=== PATIENT | male | born 1975 | race Caucasian/White ===

== ENCOUNTER → 2020-07-30 10:50 | Outpatient (BNVA) | payer BC, SELFPAY | PROVIDERS: Family Provider Family Medicine; PCP Family Medicine; Visit Provider Nurse Practitioner Family | DX: Z11.59 Encounter for screening for other viral diseases (principal); J06.9 Acute upper respiratory infection, unspecified; Z20.828 Contact with and (suspected) exposure to other viral communicable diseases | CPT/HCPCS: 87635 ==

== ENCOUNTER → 2020-09-26 12:30 | Outpatient (BNVA) | payer BC, SELFPAY | PROVIDERS: Family Provider Family Medicine; PCP Family Medicine; Visit Provider Nurse Practitioner Family | DX: Z20.828 Contact with and (suspected) exposure to other viral communicable diseases (principal) | CPT/HCPCS: 87635 ==

== ENCOUNTER → 2020-11-12 11:02 | Outpatient (BNVA) | payer OTHER, SELFPAY | PROVIDERS: Family Provider Family Medicine; PCP Family Medicine; Visit Provider Nurse Practitioner Family | DX: Z20.828 Contact with and (suspected) exposure to other viral communicable diseases (principal); J06.9 Acute upper respiratory infection, unspecified | CPT/HCPCS: 87635 ==

== ENCOUNTER 2024-10-10 09:56 | Outpatient (CLI) | payer BC, SELFPAY ==
--- NOTE | 2024-10-10 10:04 | MR_ITS ---
WS: [id number] MRI CERVICAL SPINE NONCONTRAST TECHNIQUE: Sagittal T1, T2 and STIR imaging. Axial T2, gradient, and fiesta imaging. CLINICAL INFORMATION: CERVICAL RADICULOPATHY COMPARISON: None. FINDINGS: Straightening of the normal cervical lordosis. Mild disc bulging worse at C5-6. Cord signal appears n ormal. No high-grade central canal narrowing. C2-C3: Normal. C3-C4: Mild disc osteophyte complex with endplate ridging. Mild RIGHT and no significant LEFT foramin al narrowing. Mild facet arthropathy. C4-C5: Disc osteophyte complex with endplate ridging. Moderate facet arthropathy. Moderate LEFT and m ild RIGHT bony foraminal narrowing. C5-C6: LEFT paracentral disc osteophyte protrusion. Slight indentation of the cervical cord. Spinal c anal is patent. Moderate to severe LEFT and mild RIGHT bony foraminal narrowing. Moderate facet arthr opathy. C6-C7: Disc osteophyte complex eccentric to the LEFT with severe LEFT foraminal narrowing. Moderate R IGHT bony foraminal narrowing. Mild facet arthropathy. C7-T1: Mild LEFT bony foraminal narrowing. Spinal canal and RIGHT foramen are patent. Visualized brain stem structures: Normal. Prevertebral soft tissues: Normal. IMPRESSION 1. Straightening of the normal cervical lordosis. Cord signal is normal. 2. LEFT paracentral disc osteophyte complex C5-6 with slight indentation cervical cord. Spinal canal is patent 3. Moderate to severe LEFT C5-6 and severe LEFT C6-7 bony foraminal narrowing 4. Moderate LEFT C4-5 bony foraminal narrowing.
== END 2024-10-10 09:57 | disposition home or self-care (01) ==
LOC: RAD 09:58
PROVIDERS: Family Provider Family Medicine; PCP Family Medicine; Visit Provider Emergency Medicine
DX: M54.13 Radiculopathy, cervicothoracic region (principal); M25.78 Osteophyte, vertebrae; M47.892 Other spondylosis, cervical region; M99.62 Osseous and subluxation stenosis of intervertebral foramina of thoracic region
CPT/HCPCS: 72141